=== PATIENT | female | born 1980 | race Caucasian/White ===

== ENCOUNTER 2021-01-20 11:58 | Emergency (ER) | payer BC, OTHER ==
[~2021-01-20 11:58] MED LIST: BENTYL 20MG TAB20 MG PO; LODINE CAP 300300 MG PO; ZOFRAN ODT 4 MG4 MG PO
[2021-01-20] MEDS ORDERED: PREDNISONE 20 M20 MG PO (13:44)
[2021-01-20] MEDS ORDERED: PEPCID40 MG PO (13:44)
[2021-01-20] MEDS ORDERED: BENADRYL 50MG C50 MG PO (13:44)
== END 2021-01-20 14:08 | disposition home or self-care (01) ==
LOC: ER1 11:58
DX: L50.9 Urticaria, unspecified (principal); I10 Essential (primary) hypertension
CPT/HCPCS: 96372; 99282; J2930